=== PATIENT | male | born 1965 | race Caucasian/White ===

== ENCOUNTER 2019-02-11 12:15 | Emergency (ER) | payer OTHER ==
[2019-02-11 14:44] LABS: HEMATOCRIT 44.8 % (39.0-50.0); HEMOGLOBIN 15.5 g/dl (14.0-18.0); IMMATURE GRANULOCYTES 0.5 % (0.0-5.0); MEAN CELL VOLUME 89.6 fL CALC (80.0-100.0); MEAN CORPUSCULAR HGB CONC 34.6 g/L CALC (32.0-36.0); NEUT# 7.46 thou/uL (1.82-7.42); RED CELL DISTRI WIDTH 13.1 % (11.5-15.5)
[2019-02-11 15:01] LABS: ANION GAP 16 (6-22 (CALC)); BUN 12 mg/dL (9-20); BUN/CREATININE RATIO 12 (12-20 (CALC)); CARBON DIOXIDE 25 mmol/l (22-30); CHLORIDE 103 mmol/l (95-108); GFR > 60 ML/MIN (>=60 (CALC)); GFR FOR AFR.AMER. > 60 ML/MIN (>=60 (CALC)); POTASSIUM 4.1 mmol/l (3.5-5.1); SODIUM 139 mmol/l (137-146)
[2019-02-11 16:31] VITALS: BP 138/88
[2019-02-11] MEDS ORDERED: DOCUSATE SOD100 M2 PO (16:39)
[2019-02-11] MEDS ORDERED: PAROXETINE20 MG PO (16:40)
[2019-02-11] MEDS ORDERED: METAMUCIL FIBE51.7 % PO (16:40)
[2019-02-11] MEDS ORDERED: CVS OMEPRAZOLE20 MG PO (16:41)
[2019-02-11] MEDS ORDERED: CA CITRATE250 MG PO (16:42)
[2019-02-11] MEDS ORDERED: CONSTULOSE10 GM/15 M PO (16:42)
[2019-02-11] MEDS ORDERED: BACLOFEN10 MG PO (16:43)
== END 2019-02-11 16:51 | disposition home or self-care (01) | DRG 563 ==
LOC: ED 12:15
PROVIDERS: Family Medicine
PROC: 0RSJXZZ Reposition Right Shoulder Joint, External Approach (ICD-10-PCS; principal; 2019-02-11)
DX: S43.014A Anterior dislocation of right humerus, initial encounter (principal); M25.511 Pain in right shoulder; X50.9XXA Other and unspecified overexertion or strenuous movements or postures, initial encounter; Y92.89 Other specified places as the place of occurrence of the external cause